=== PATIENT | female | born 1995 | race African-American/Black ===

== ENCOUNTER 2020-03-19 06:28 | Inpatient (IN) ==
[2020-03-19] MEDS ORDERED: D5LR 1L W PITOCIN 10 UNITS/L 10 UNITS/1,000 ML BAG IV PRN (06:33)
[2020-03-19] MEDS ORDERED: REGLAN INJ 10 MG VIAL IVP PRN (06:33)
[2020-03-19] MEDS ORDERED: PITOCIN IVP ONE (06:33)
[2020-03-19] MEDS ORDERED: MORPHINE SULFATE INJ 2 MG INJ IVP PRN (06:33)
[2020-03-19] MEDS ORDERED: PHENERGAN INJ 25 MG IM PRN ×2 (06:33→20:40)
[2020-03-19] MEDS ORDERED: STADOL INJ IVP PRN (06:36)
[2020-03-19] MEDS ORDERED: BETADINE SOLN ONE (06:37)
[2020-03-19] MEDS ORDERED: D5 1/2 NS 1L W PITOCIN 20 UNITS/L 20 UNITS/1,000 ML BAG IV ONE (06:38)
[2020-03-19] MEDS ORDERED: D5 1/2 NS 1000 ML 1,000 ML IV SCH (07:00)
[2020-03-19 07:06] LABS: BILIRUBIN,URINE NEGATIVE (NEGATIVE); BLOOD/HEMOGLOBIN,URINE 1+ (NEGATIVE); GLUCOSE, URINE NEGATIVE (NEGATIVE); KETONES,URINE 2+ (NEGATIVE); LEUKOCYTE ESTERASE ,URINE 3+ (NEGATIVE); NITRITES,URINE NEGATIVE (NEGATIVE); PROTEIN,URINE 2+ (NEGATIVE); UROBILINOGEN,URINE NORMAL (NORMAL)
[2020-03-19 07:08] LABS: BASOPHILS # (AUTO) 0.1 X10^3/uL (0.0-0.1); BASOPHILS % (AUTO) 0.9 % (0.2-1.0); EOSINOPHILS # (AUTO) 0.1 x10^3/uL (0.0-0.2); EOSINOPHILS % (AUTO) 0.8 % (0.9-2.9); HEMATOCRIT 33.9 % (36.0-47.0); LYMPHOCYTES # (AUTO) 1.9 X10^3/uL (1.3-2.9); LYMPHOCYTES % (AUTO) 18.8 % (21.0-51.0); MEAN CORPUSCULAR HEMOGLOBIN 24.8 pg (27.0-34.0); MEAN CORPUSCULAR HGB CONC 32.6 g/dL (33.0-35.0); MEAN PLATELET VOLUME 9.9 fL (7.4-11.0); MONOCYTES # (AUTO) 0.6 x10^3/uL (0.3-0.8); NEUTROPHILS # (AUTO) 7.5 x10^3/uL (2.2-4.8); NEUTROPHILS % (AUTO) 73.5 % (42.0-75.0); PLATELET COUNT 253 X10^3/uL (150.0-450.0); RED BLOOD COUNT 4.46 X10^6/uL (3.5-5.4); RED CELL DISTRIBUTION WIDTH 15.8 % (11.6-16.5); WHITE BLOOD COUNT 10.2 X10^3/uL (3.6-10.0)
[2020-03-19 07:09] LABS: BLOOD UREA NITROGEN 4 mg/dL (7-18); CARBON DIOXIDE 19.3 mmol/L (21-32); CHLORIDE 103 mmol/L (98-107); CREATININE 0.61 mg/dL (0.55-1.02); SODIUM 135 mmol/L (136-145); eGFR NON BLACK RACES > 60 (>60)
[2020-03-19 07:26] LABS: APPEARANCE,URINE HAZY (CLEAR); BACTERIA,URINE 2+ /HPF (NEGATIVE); COLOR,URINE YELLOW (YELLOW); SQUAMOUS EPITHELIAL CELL,UR MODERATE /HPF (NEGATIVE)
[2020-03-19] MEDS ORDERED: STADOL INJ ONE (09:13)
[2020-03-19] MEDS ORDERED: FENTANYL INJ 100 mcg ONE ×2 (11:58→11:59)
[2020-03-19] MEDS ORDERED: LR 1000 ML IV 1,000 ML IV ONE ×2 (11:59→17:13)
[2020-03-19] MEDS ORDERED: NAROPIN EPIDURAL 0.2% 100 ML ONE (12:00)
[2020-03-19] MEDS ORDERED: REGLAN INJ 10 MG VIAL ONE (14:47)
[2020-03-19] MEDS ORDERED: D5LR 1L W PITOCIN 10 UNITS/L 10 UNITS/1,000 ML BAG IV ONE (16:34)
[2020-03-19] MEDS ORDERED: LOPRESSOR INJ 5 MG AMP IVP ONE (17:40)
[2020-03-19] MEDS ORDERED: LOPRESSOR INJ 5 MG AMP ONE (17:45)
[2020-03-19] MEDS ORDERED: D5 1/2 NS 1000 ML 1,000 ML with PITOCIN 20 UNITS IV SCH ×2 (21:00)
[2020-03-19] MEDS ORDERED: MILK OF MAGNESIA PO PRN (21:19)
[2020-03-19] MEDS ORDERED: DERMOPLAST PAIN RELIEF SPRAY TOP PRN (21:19)
[2020-03-19] MEDS ORDERED: AMBIEN PO PRN (21:19)
[2020-03-19] MEDS ORDERED: ADACEL or BOOSTRIX TDaP VACCINE IM ONE (21:19)
[2020-03-20] MEDS: MOTRIN TAB 800 MG PO PRN ×2 (00:50→23:49)
[2020-03-20 06:42] LABS: HEMATOCRIT 28.3 % (36.0-47.0); HEMOGLOBIN 9.2 g/dL (12.0-16.0)
[2020-03-20] MEDS: PRENATAL PLUS PO SCH (08:46)
[2020-03-20] MEDS: NS 100 ML IV 100 ML with VENOFER 400 MG IV NR ×4 (11:17→17:34)
[2020-03-20] MEDS ORDERED: NS 100 ML IV 100 ML IV ONE (11:33)
[2020-03-21] MEDS: PRENATAL PLUS PO SCH (08:39)
[2020-03-21] MEDS ORDERED: ADACEL or BOOSTRIX TDaP VACCINE IM ONE (10:00)
[2020-03-21 10:27] VITALS: BP 125/67
== END 2020-03-21 12:00 | disposition home or self-care (01) | DRG 807 ==
LOC: LD 06:28 → MED/SURG 21:15
PROVIDERS: ADMIT Obstetrics & Gynecology Obstetrics; ATTEND Obstetrics & Gynecology Obstetrics